=== PATIENT | female | born 1990 | race Caucasian/White ===

== ENCOUNTER 2016-12-20 20:34 | Emergency (ER) | payer SELFPAY ==
[~2016-12-20] VITALS: Ht 152.4 cm; Wt 47.0 kg
[2016-12-20 23:00] VITALS: BP 123/56
[2016-12-20] MEDS ORDERED: BACITRACIN ZINC OINT UDPKT TOP SCH (23:15)
== END 2016-12-21 00:23 | disposition home or self-care (01) ==
LOC: ER 20:34
DX: F10.129 Alcohol abuse with intoxication, unspecified (principal); F15.10 Other stimulant abuse, uncomplicated; S60.812A Abrasion of left wrist, initial encounter; F41.9 Anxiety disorder, unspecified; F99 Mental disorder, not otherwise specified; Y90.9 Presence of alcohol in blood, level not specified; Y04.0XXA Assault by unarmed brawl or fight, initial encounter; Y93.89 Activity, other specified; Y92.89 Other specified places as the place of occurrence of the external cause
CPT/HCPCS: 99283